=== PATIENT | female | born 1975 | race Caucasian/White ===

== ENCOUNTER 2023-01-26 12:28 | Emergency (ER) | payer BC ==
[~2023-01-26] VITALS: Ht 175.3 cm; Wt 81.7 kg
[2023-01-26 13:08] VITALS: BP 145/103
== END 2023-01-26 14:50 | disposition home or self-care (01) ==
LOC: ER 12:28
DX: S86.912A Strain of unspecified muscle(s) and tendon(s) at lower leg level, left leg, initial encounter (principal); X50.1XXA Overexertion from prolonged static or awkward postures, initial encounter
CPT/HCPCS: 93971; 99283-25